=== PATIENT | female | born 1935 | race Caucasian/White ===

== ENCOUNTER → 2016-12-02 | Outpatient (CLI) | payer MEDICARE, BC ==
[~2016-12-02] MED LIST: ARICEPT23 MG PO; ASPIRIN81 MG PO; CALCIUM 600 +1 EACH PO; COLACE100 MG PO; CYMBALTA30 MG PO; FOLIC ACID1 MG PO; LYRICA75 MG PO; METHOTREXATE2.5 MG PO; MOBIC15 MG PO; MULTIVITAMINS1 EAC1 PO; OXYCODONE HCL5 MG PO; PLAQUENIL200 M1 PO; SYNTHROID112 MCG PO; TYLENOL325 MG PO; ULTRAM50 MG PO
== END | disposition short-term general hospital (02) ==
LOC: CLRHEU 13:59
DX: M17.9 Osteoarthritis of knee, unspecified (principal); M06.00 Rheumatoid arthritis without rheumatoid factor, unspecified site